=== PATIENT | female | born 1960 | race Caucasian/White ===

== ENCOUNTER 2018-07-28 16:28 | Observation (INO) | payer OTHER ==
[2018-07-28 17:41] LABS: Urine Blood NEGATIVE (NEG); Urine Glucose NEGATIVE (NEG); Urine Protein NEGATIVE (NEG); Urine Specific Gravity 1.015 (1.005-1.030); Urine pH 8.5 (5.0-7.0)
[2018-07-28] MEDS ORDERED: PANTOPRAZOLE 40 MG INJ ONE (17:43)
[2018-07-28] MEDS ORDERED: NA CHLORIDE 0.9% 1,000 ML ONE (17:43)
[2018-07-28] MEDS ORDERED: METRONIDAZOLE 500mg IVPB 500 MG/100 ML BAG IV ONE (17:43)
[2018-07-28] MEDS ORDERED: MORPHINE 4 MG/ML SYR ONE ×2 (17:43→18:40)
[2018-07-28] MEDS ORDERED: Levofloxacin 750mg IV 750 MG/150 ML BAG IV ONE (17:43)
[2018-07-28] MEDS ORDERED: ONDANSETRON 4 MG/2 ML VIAL ONE (17:43)
[2018-07-28 18:04] LABS: Absolute Lymphocytes (CBC) 1.5 K/uL (0.7-4.9); Absolute Monocytes 0.3 K/uL (0.1-1.3); Absolute Neutrophil 3.1 K/uL (1.8-8.0); Basophils % 0.7 % (0-1.3); Eosinophils % 2.7 % (0-4.4); Hematocrit 41.9 % (36.0-45.0); MPV 7.5 fL (7.6-11.3); Monocytes % 5.5 % (3.3-12.3); RBC Red Blood Cell Count 4.64 M/uL (3.86-4.86)
[2018-07-28 18:07] LABS: Protime INR 1.03
--- NOTE | 2018-07-28 18:22 | RAD REPORT ---
EXAM DESCRIPTION: Jessica Single View07/28/2018 6:16 pm CLINICAL HISTORY: Abdominal pain COMPARISON: none FINDINGS: The lungs appear clear of acute infiltrate. The heart is normal size IMPRESSION: No acute abnormalities displayed
[2018-07-28 18:26] LABS: ALT/SGPT 20 U/L (12-78); AST/SGOT 11 U/L (15-37); Alkaline Phosphatase 69 U/L (45-117); BUN Blood Urea Nitrogen 7 mg/dL (7-18); Bicarbonate 37 mmol/L (21-32); Bilirubin Direct 0.1 mg/dL (0-0.2); Bilirubin Total 0.6 mg/dL (0.2-1.0); Glucose Level 103 mg/dL (74-106); Lipase 54 U/L (73-393); NT PRO-BNP 49 pg/mL (<125); Protein, Total 7.7 g/dL (6.4-8.2); Sodium Level 140 mmol/L (136-145); Troponin (Emerg Dept Use Only) < 0.02 ng/mL (0.0-0.045)
[2018-07-28 18:32] LABS: Potassium 2.8 mmol/L (3.5-5.1)
--- NOTE | 2018-07-28 18:38 | ER ---
Nurse's Notes [facility] Name: Sravani Noriega Age: 58 yrs Sex: Female : 1960 Arrival Date: 07/28/2018 Time: 16:34 Bed 6 Private MD: out of town, doctor Diagnosis: Abdominal tenderness;Diarrhea, unspecified-colitis;Volume depletion;Hypokalemia Presentation: 07/28 16:42 Presenting complaint: Patient states: Lower abdominal pain with bloody stool for 6 aj days. Reports pain in bilateral flanks. Transition of care: patient was not received from another setting of care. Onset of symptoms was July 22, 2018. Risk Assessment: Do you want to hurt yourself or someone else? Patient reports no desire to harm self or others. Initial Sepsis Screen: Does the patient meet any 2 criteria? No. Patient's initial sepsis screen is negative. Does the patient have a suspected source of infection? No. Patient's initial sepsis screen is negative. Care prior to arrival: None. 16:42 Method Of Arrival: Ambulatory 16:42 Acuity: ADELSO 3 aj Triage Assessment: 16:44 General: Appears in no apparent distress. uncomfortable, Behavior is calm, cooperative, aj appropriate for age. Pain: Complains of pain in posterior aspect of right lateral abdomen, anterior aspect of right lateral abdomen, posterior aspect of left lateral abdomen, anterior aspect of left lateral abdomen, right lower quadrant and left lower quadrant. Neuro: Level of Consciousness is awake, alert, obeys commands, Oriented to person, place, time, situation, Appropriate for age. Respiratory: Airway is patent Respiratory effort is even, unlabored, Respiratory pattern is regular, symmetrical. GI: Reports lower abdominal pain, diarrhea, bloody stool, nausea. Derm: Skin is intact, is healthy with good turgor, Skin is pink, warm \T\ dry. normal. Historical: - Allergies: 16:44 No Known Allergies; aj - Home Meds: 16:44 losartan oral oral [Active]; Hydrochlorothiazide Oral [Active]; amitriptyline Oral aj [Active]; Wellbutrin Oral [Active]; Ambien Oral [Active]; Xanax Oral [Active]; Trazodone Oral [Active]; - PMHx: 16:44 Hypertension; Anxiety; Depression; aj - PSHx: 16:44 Right ankle; Hysterectomy; aj - Immunization history:: Adult Immunizations up to date. - Social history:: Smoking status: Patient/guardian denies using tobacco. - Ebola Screening: : Patient negative for fever greater than or equal to 101.5 degrees Fahrenheit, and additional compatible Ebola Virus Disease symptoms Patient denies exposure to infectious person Patient denies travel to an Ebola-affected area in the 21 days before illness onset No symptoms or risks identified at this time. - Family history:: not pertinent. Screenin:45 Abuse screen: Denies threats or abuse. Denies injuries from another. Nutritional sv screening: No deficits noted. Tuberculosis screening: No symptoms or risk factors identified. Fall Risk None identified. Assessment: 17:45 General: Appears in no apparent distress. uncomfortable, well developed, Behavior is sv calm, cooperative, appropriate for age. Pain: Complains of pain in abdomen and low back Pain currently is 10 out of 10 on a pain scale. Pain began about a week ago Is continuous. Neuro: Level of Consciousness is awake, alert, obeys commands, Oriented to person, place, time, situation, Moves all extremities. Full function Gait is steady. Respiratory: Respiratory effort is even, unlabored, Respiratory pattern is regular, symmetrical. GI: Reports lower abdominal pain, upper abdominal pain, diarrhea, bloody stool, intolerance of food, nausea, tolerance of fluids, vomiting. Derm: Skin is pink, warm \T\ dry. 18:30 Reassessment: Patient appears in no apparent distress at this time. Patient and/or sv family updated on plan of care and expected duration. Pain level reassessed. Patient is alert, oriented x 3, equal unlabored respirations, skin warm/dry/pink. 18:30 Pain: Complains of pain in abdomen and low back Pain currently is 6 out of 10 on a pain sv scale. 19:38 Reassessment: Patient is alert, oriented x 3, equal unlabored respirations, skin lp1 warm/dry/pink. Patient pending CT; Aware of admission. Pain: Complains of pain in right lower quadrant. Vital Signs: 16:44 BP 130 / 90; Pulse 99; Resp 20; Temp 97.6; Pulse Ox 98% on R/A; Weight 71.21 kg; Height aj 5 ft. 4 in. (162.56 cm); 17:30 BP 121 / 84; Pulse 79; Resp 16; Pulse Ox 99% ; sv 18:15 BP 113 / 73; Pulse 72; Resp 18; Pulse Ox 97% ; sv 20:30 BP 123 / 55; Pulse 77; Resp 16; Pulse Ox 100% on R/A; Pain 8/10; lp1 16:44 Body Mass Index 26.95 (71.21 kg, 162.56 cm) ED Course: 16:34 Patient arrived in ED. sb2 16:35 out of town, doctor is Private Physician. sb2 16:42 Triage completed. aj 16:44 Arm band placed on left wrist. Patient placed in an exam room. aj 17:06 Shaun Siddiqui MD is Attending Physician. riley 17:27 Gisel Bee RN is Primary Nurse. sv 17:45 Patient has correct armband on for positive identification. Placed in gown. Bed in low sv position. Call light in reach. Pulse ox on. NIBP on. Door closed. Warm blanket given. Head of bed elevated. 17:45 Initial lab(s) drawn, by nj, sent to lab. Inserted saline lock: 20 gauge in right sv antecubital area, using aseptic technique. Blood collected. Flushed right antecubital with 5 ml normal saline. 17:58 EKG done, by air sealing technician. reviewed by Shaun Siddiqui MD. 3 18:17 XRAY Chest (1 view) In Process Unspecified. EDMS 18:30 Warm blanket given. sv 18:34 Marlo Powers MD is Hospitalizing Provider. [facility] 19:15 Report given to Karrie GOLD and Sheri GOLD. sv 19:29 Primary Nurse role handed off by Gisel Bee RN sv 19:38 Sheri Gregorio, ASIF is Primary Nurse. lp1 19:39 No provider procedures requiring assistance completed. Patient admitted, IV remains in lp1 place. 20:[address] via wheelchair. lp1 20:23 CT completed. Patient tolerated procedure well. Patient moved back from CT. nj Administered Medications: 17:45 Drug: Zofran 4 mg Route: IVP; Site: right antecubital; sv 18:09 Follow up: Response: No adverse reaction sv 17:45 Drug: NS 0.9% 1000 ml Route: IV; Rate: 1 bolus; Site: right antecubital; sv 18:35 Follow up: Response: No adverse reaction; IV Status: Completed infusion; IV Intake: sv 1000ml 17:47 Drug: morphine 4 mg Route: IVP; Site: right antecubital; sv 18:09 Follow up: Response: No adverse reaction sv 17:49 Drug: ProTONIX 40 mg Route: IVP; Site: right antecubital; sv 18:09 Follow up: Response: No adverse reaction sv 17:51 Drug: Flagyl 500 mg Volume: 100 ml; Route: IVPB; Rate: 200 ml/hr; Infused Over: 30 sv mins; Site: right antecubital; 18:55 Follow up: Response: No adverse reaction; IV Status: Completed infusion; IV Intake: sv 100ml 18:32 Drug: morphine 4 mg Route: IVP; Site: right antecubital; sv 18:59 Follow up: Response: No adverse reaction sv 18:56 Drug: levofloxacin 750 mg Volume: 150 ml; Route: IVPB; Infused Over: 90 mins; Site: sv right antecubital; 20:58 Follow up: IV Status: Completed infusion tl2 21:06 Not Given (Mixed by pharmacy , to be given on admission): Potassium Chloride 20 mEq IV lp1 at per protocol once; administer over 1-2 hours 21:07 Not Given (Mixed by pharmacy, to be given on admission): Potassium Chloride 20 mEq IV lp1 at per protocol once; administer over 1-2 hours Intake: 18:07 PO: 500ml (Contrast); Total: 500ml. sv 18:35 IV: 1000ml; Total: 1500ml. sv 18:55 IV: 100ml; Total: 1600ml. sv 18:07 Called and informed Juany in [place], pt finished contrast. sv Outcome: 18:37 Decision to Hospitalize by Provider. riley 20:13 Condition: stable lp1 20:13 Instructed on the need for admit. 21:05 Admitted to Tele accompanied by tech, via wheelchair, room 410, with chart, Report lp1 called to ASIF [place] 21:11 Patient left the ED. lp1 Signatures: Dispatcher [employer] EDMS Gisel Bee RN RN sv Myers, Amanda, RN RN aj Anderson, Corey, MD MD cha Pena, Laura, RN RN lp1 Karrie Yan RN RN tl2 Carlos Espinoza Sheri sb2 Kinjal Kinsey sm3 Corrections: (The following items were deleted from the chart) 19:18 18:30 Reassessment: Patient appears in no apparent distress at this time. Patient sv and/or family updated on plan of care and expected duration. Pain level reassessed. Patient is alert, oriented x 3, equal unlabored respirations, skin warm/dry/pink. sv
--- NOTE | 2018-07-28 18:38 | EDPHYS ---
Physician Documentation [facility] Name: Sravani Noriega Age: 58 yrs Sex: Female : 1960 Arrival Date: 07/28/2018 Time: 16:34 Bed 6 Private MD: out of town, doctor ED Physician Shaun Siddiqui HPI: 07/28 17:29 This 58 yrs old Female presents to ER via Ambulatory with complaints of riley Bloody Stools, Back Pain, Flank Pain. 17:29 The patient presents with pain that is acute. The symptoms are located in the low back. riley Onset: The symptoms/episode began/occurred 5 day(s) ago. 17:30 The patient presents with abdominal pain in the upper abdomen, in the lower abdomen, riley abdominal distention. Onset: The symptoms/episode began/occurred 5 day(s) ago. The patient presents to the emergency department with diarrhea, abdominal pain, of the right upper quadrant, left upper quadrant, right lower quadrant and left lower quadrant. Onset: The symptoms/episode began/occurred 5 day(s) ago. Possible causes: unknown. The symptoms are aggravated by nothing. The symptoms are alleviated by nothing. The patient presents to the emergency department with rectal bleeding. Historical: - Allergies: 16:44 No Known Allergies; aj - Home Meds: 16:44 losartan oral oral [Active]; Hydrochlorothiazide Oral [Active]; amitriptyline Oral aj [Active]; Wellbutrin Oral [Active]; Ambien Oral [Active]; Xanax Oral [Active]; Trazodone Oral [Active]; - PMHx: 16:44 Hypertension; Anxiety; Depression; aj - PSHx: 16:44 Right ankle; Hysterectomy; aj - Immunization history:: Adult Immunizations up to date. - Social history:: Smoking status: Patient/guardian denies using tobacco. - Ebola Screening: : Patient negative for fever greater than or equal to 101.5 degrees Fahrenheit, and additional compatible Ebola Virus Disease symptoms Patient denies exposure to infectious person Patient denies travel to an Ebola-affected area in the 21 days before illness onset No symptoms or risks identified at this time. - Family history:: not pertinent. ROS: 17:30 Constitutional: Negative for fever, chills, and weight loss, Eyes: Negative for injury, riley pain, redness, and discharge, ENT: Negative for injury, pain, and discharge, Neck: Negative for injury, pain, and swelling, Cardiovascular: Negative for chest pain, palpitations, and edema, Respiratory: Negative for shortness of breath, cough, wheezing, and pleuritic chest pain, Back: Negative for injury and pain, : Negative for injury, bleeding, discharge, and swelling, MS/Extremity: Negative for injury and deformity, Skin: Negative for injury, rash, and discoloration, Neuro: Negative for headache, weakness, numbness, tingling, and seizure, Psych: Negative for depression, anxiety, suicide ideation, homicidal ideation, and hallucinations, Allergy/Immunology: Negative for hives, rash, and allergies, Endocrine: Negative for neck swelling, polydipsia, polyuria, polyphagia, and marked weight changes, Hematologic/Lymphatic: Negative for swollen nodes, abnormal bleeding, and unusual bruising. 17:30 Abdomen/GI: Positive for abdominal pain, rectal bleeding, of the right upper quadrant, left upper quadrant, right lower quadrant and left lower quadrant. Exam: 17:30 Constitutional: This is a well developed, well nourished patient who is awake, alert, riley and in no acute distress. Head/Face: Normocephalic, atraumatic. Eyes: Pupils equal round and reactive to light, extra-ocular motions intact. Lids and lashes normal. Conjunctiva and sclera are non-icteric and not injected. Cornea within normal limits. Periorbital areas with no swelling, redness, or edema. ENT: Nares patent. No nasal discharge, no septal abnormalities noted. Tympanic membranes are normal and external auditory canals are clear. Oropharynx with no redness, swelling, or masses, exudates, or evidence of obstruction, uvula midline. Mucous membranes moist. Neck: Trachea midline, no thyromegaly or masses palpated, and no cervical lymphadenopathy. Supple, full range of motion without nuchal rigidity, or vertebral point tenderness. No Meningismus. Chest/axilla: Normal chest wall appearance and motion. Nontender with no deformity. No lesions are appreciated. Cardiovascular: Regular rate and rhythm with a normal S1 and S2. No gallops, murmurs, or rubs. Normal PMI, no JVD. No pulse deficits. Respiratory: Lungs have equal breath sounds bilaterally, clear to auscultation and percussion. No rales, rhonchi or wheezes noted. No increased work of breathing, no retractions or nasal flaring. Back: No spinal tenderness. No costovertebral tenderness. Full range of motion. Female : Normal external genitalia. Skin: Warm, dry with normal turgor. Normal color with no rashes, no lesions, and no evidence of cellulitis. MS/ Extremity: Pulses equal, no cyanosis. Neurovascular intact. Full, normal range of motion. Neuro: Awake and alert, GCS 15, oriented to person, place, time, and situation. Cranial nerves II-XII grossly intact. Motor strength 5/5 in all extremities. Sensory grossly intact. Cerebellar exam normal. Normal gait. Psych: Awake, alert, with orientation to person, place and time. Behavior, mood, and affect are within normal limits. 17:30 Abdomen/GI: Inspection: abdomen appears normal, Bowel sounds: normal, Palpation: mild abdominal tenderness, in all quadrants, Rectal exam: rectal tone normal, Stool: normal, guaiac negative, hemorrhoid(s), are not appreciated, mass, is not appreciated, swelling, is not appreciated, tenderness, is not appreciated. Vital Signs: 16:44 BP 130 / 90; Pulse 99; Resp 20; Temp 97.6; Pulse Ox 98% on R/A; Weight 71.21 kg; Height aj 5 ft. 4 in. (162.56 cm); 17:30 BP 121 / 84; Pulse 79; Resp 16; Pulse Ox 99% ; sv 18:15 BP 113 / 73; Pulse 72; Resp 18; Pulse Ox 97% ; sv 20:30 BP 123 / 55; Pulse 77; Resp 16; Pulse Ox 100% on R/A; Pain 8/10; lp1 16:44 Body Mass Index 26.95 (71.21 kg, 162.56 cm) MDM: 17:[address] [facility] 17:32 Data reviewed: vital signs, nurses notes, lab test result(s), EKG, radiologic studies, [facility] CT scan, plain films. 07/28 17:29 Order name: Basic Metabolic Panel; Complete Time: 18:33 [facility] 07/28 17:29 Order name: CBC with Diff; Complete Time: 18:31 [facility] 07/28 17:29 Order name: LFT's; Complete Time: 18:33 [facility] 07/28 17:29 Order name: Magnesium; Complete Time: 18:33 [facility] 07/28 17:29 Order name: NT PRO-BNP; Complete Time: 18:33 [facility] 07/28 17:29 Order name: PT-INR; Complete Time: 18:31 [facility] 07/28 17:29 Order name: Troponin (emerg Dept Use Only); Complete Time: 18:33 [facility] 07/28 17:29 Order name: XRAY Chest (1 view); Complete Time: 18:31 [facility] 07/28 17:29 Order name: Lipase; Complete Time: 18:33 [facility] 07/28 17:29 Order name: CT Abd/Pelvis - W/Contrast: iv and oral [facility] 07/28 17:38 Order name: Urine Dipstick--Ancillary (enter results); Complete Time: 18:31 07/28 19:59 Order name: Lactate [facility] 07/28 20:51 Order name: CT [facility] 07/28 17:29 Order name: EKG; Complete Time: 17:30 [facility] 07/28 17:29 Order name: EKG - Nurse/Tech; Complete Time: 18:08 [facility] 07/28 17:29 Order name: IV Saline Lock; Complete Time: 17:59 [facility] 07/28 17:29 Order name: Labs collected and sent; Complete Time: 17:59 [facility] 07/28 17:29 Order name: O2 Per Protocol; Complete Time: 18:00 [facility] 07/28 17:29 Order name: O2 Sat Monitoring; Complete Time: 19:01 [facility] Administered Medications: 17:45 Drug: Zofran 4 mg Route: IVP; Site: right antecubital; sv 18:09 Follow up: Response: No adverse reaction sv 17:45 Drug: NS 0.9% 1000 ml Route: IV; Rate: 1 bolus; Site: right antecubital; sv 18:35 Follow up: Response: No adverse reaction; IV Status: Completed infusion; IV Intake: sv 1000ml 17:47 Drug: morphine 4 mg Route: IVP; Site: right antecubital; sv 18:09 Follow up: Response: No adverse reaction sv 17:49 Drug: ProTONIX 40 mg Route: IVP; Site: right antecubital; sv 18:09 Follow up: Response: No adverse reaction sv 17:51 Drug: Flagyl 500 mg Volume: 100 ml; Route: IVPB; Rate: 200 ml/hr; Infused Over: 30 sv mins; Site: right antecubital; 18:55 Follow up: Response: No adverse reaction; IV Status: Completed infusion; IV Intake: sv 100ml 18:32 Drug: morphine 4 mg Route: IVP; Site: right antecubital; sv 18:59 Follow up: Response: No adverse reaction sv 18:56 Drug: levofloxacin 750 mg Volume: 150 ml; Route: IVPB; Infused Over: 90 mins; Site: sv right antecubital; 20:58 Follow up: IV Status: Completed infusion tl2 21:06 Not Given (Mixed by pharmacy , to be given on admission): Potassium Chloride 20 mEq IV lp1 at per protocol once; administer over 1-2 hours 21:07 Not Given (Mixed by pharmacy, to be given on admission): Potassium Chloride 20 mEq IV lp1 at per protocol once; administer over 1-2 hours Disposition: 07/28/18 18:37 Hospitalization ordered by Marlo Powers for Inpatient Admission. Preliminary diagnosis are Abdominal tenderness, Diarrhea, unspecified - colitis, Volume depletion, Hypokalemia. - Bed requested for Telemetry/MedSurg (Inpatient). - Status is Inpatient Admission. lp1 - Condition is Fair. - Problem is new. - Symptoms have improved. UTI on Admission? No Signatures: Dispatcher [employer] Gisel Banuelos RN RN sv Webb, Martha RN Susie Samuel RN RN aj Anderson, Corey, MD MD cha Pena, Laura, RN RN lp1 Karrie Yan RN tl2 Corrections: (The following items were deleted from the chart) 18:59 17:29 Cardiac monitoring ordered. [facility] 20:02 18:37 Hospitalization Ordered by Marlo Powers MD for Inpatient Admission. Preliminary diagnosis is Abdominal tenderness; Diarrhea, unspecified - colitis; Volume depletion; Hypokalemia. Bed requested for Telemetry/MedSurg (Inpatient). Status is Inpatient Admission. Condition is Fair. Problem is new. Symptoms have improved. UTI on Admission? No. [facility] 21:11 20:02 07/28/2018 18:37 Hospitalization Ordered by Marlo Powers MD for Inpatient lp1 Admission. Preliminary diagnosis is Abdominal tenderness; Diarrhea, unspecified - colitis; Volume depletion; Hypokalemia. Bed requested for Telemetry/MedSurg (Inpatient). Status is Inpatient Admission. Condition is Fair. Problem is new. Symptoms have improved. UTI on Admission? No. mw
[2018-07-28] MEDS ORDERED: NA CHLORIDE 0.9% 500 ML with POTASSIUM CL 40 MEQ IV ONE ×2 (19:00)
--- NOTE | 2018-07-28 19:58 | P.HP ---
Certification for Inpatient Patient admitted to: Observation With expected LOS: <2 Midnights Practitioner: I am a practitioner with admitting privileges, knowledge of patient current condition, hospital course, and medical plan of care. Services: Services provided to patient in accordance with Admission requirements found in Title 42 Section 412.3 of the Code of Federal Regulations Patient History Date of Service: 07/28/18 Reason for admission: gastroenteritis History of Present Illness: Ms Noriega is a 58 years old woman with history of HTN, anxiety and depression, who start about 7 days ago with severe abdominal pain associated with nausea, vomiting and diarrhea. Her diarrhea transitorily improved along this week, but since yesterday she has more profuse again. The diarrhea has mucous and occasionally sow some blood and clots. She is not tollerating solid food but is ok with liquids. She denied fever or chills. Abdominal pain, is diffuse, colicky like, 8/10 of maximum intensity. Lab work shows normal WBC count, lactate is pending. She has electrolyte disturbance. CT abd/pelvis pending. Home medications list reviewed: Yes - Past Medical/Surgical History -: HTN -: anxiety -: depression -: right ankle -: hysterectomy - Family History Family History: Reviewed- Non-Contributory - Social History Smoking Status: Former smoker Alcohol use: No CD- Drugs: No Place of Residence: Home Review of Systems 10-point ROS is otherwise unremarkable Physical Examination - Physical Exam General: Alert, In no apparent distress HEENT: Atraumatic, PERRLA, Mucous membr. moist/pink, EOMI, Sclerae nonicteric Neck: Supple, 2+ carotid pulse no bruit, No LAD, Without JVD or thyroid abnormality Respiratory: Clear to auscultation bilaterally, Normal air movement Cardiovascular: Regular rate/rhythm, Normal S1 S2 Gastrointestinal: Normal bowel sounds, Tenderness (diffuse tenderness to palpation) Musculoskeletal: No tenderness Integumentary: No rashes Neurological: Normal speech, Normal strength at 5/5 x4 extr, Normal tone, Normal affect Lymphatics: No axilla or inguinal lymphadenopathy - Studies Laboratory Data (last 24 hrs) 07/28/18 17:45: PT 12.1, INR 1.03 07/28/18 17:45: WBC 5.0, Hgb 14.5, Hct 41.9, Plt Count 340 07/28/18 17:45: Sodium 140, Potassium 2.8 L*, BUN 7, Creatinine 0.94, Glucose 103, Magnesium 3.0 H, Total Bilirubin 0.6, AST 11 L, ALT 20, Alkaline Phosphatase 69, Lipase 54 L Assessment and Plan - Problems (Diagnosis) (1) Acute gastroenteritis Current Visit: Yes Status: Acute (2) HTN (hypertension) Current Visit: Yes Status: Acute Qualifiers: Hypertension type: essential hypertension Qualified Code(s): I10 - Essential (primary) hypertension (3) Hypokalemia Current Visit: Yes Status: Acute (4) Volume depletion Current Visit: Yes Status: Acute - Plan The patient clinical presentation is consistent with gastroenteritis, may be colitis, awaiting CT abd/pelvis result. Will order stool cultures, C.Diff, WBC stools, differential diagnosis is broad. Will order IV fluids, and clear liquids diet. Will replace electrolytes by protocol as needed. - Advance Directives Does patient have a Living Will: No Does patient have a Durable POA for Healthcare: No - Code Status/Comfort Care Code Status Assessed: Yes Code Status: Full Code
[2018-07-28] MEDS ORDERED: ONDANSETRON 4 MG/2 ML VIAL IV PRN (20:36)
[2018-07-28] MEDS ORDERED: ACETAMINOPHEN 500 MG TAB PO PRN (20:36)
[2018-07-28] MEDS ORDERED: KETOROLAC 30 MG/ML INJ IV ONE (20:42)
--- NOTE | 2018-07-28 20:50 | RAD REPORT ---
EXAM DESCRIPTION: CT - Abdomen Pelvis W Contrast - 07/28/2018 8:22 pm CLINICAL HISTORY: Abdominal pain. Hematochezia COMPARISON: None. TECHNIQUE: Computed axial tomography of the abdomen and pelvis was obtained. 100 cc Isovue-300 is ad ministered intravenously. Oral contrast was given. All CT scans are performed using dose optimization technique as appropriate and may include automated exposure control or mA/KV adjustment according to patient size. FINDINGS: The liver, spleen, pancreas, adrenals and kidneys appear unremarkable. The appendix is normal caliber. There is no evidence of diverticulitis The wall of the sigmoid colon appears mildly thickened IMPRESSION: Mild thickening of the wall of the sigmoid colon probably indicates a mild colitis
[2018-07-28] MEDS ORDERED: KETOROLAC 30 MG/ML INJ ONE (20:57)
[2018-07-28] MEDS ORDERED: Oxycodone HCl/Acetaminophen 1 TAB TAB PO ONE (21:50)
[2018-07-28] MEDS ORDERED: DIPHENHYDRAMINE 50 MG/ML VIAL IV ONE (21:50)
[2018-07-28] MEDS: NA CHLORIDE 0.9% 1,000 ML IV SCH (22:06)
[2018-07-29] MEDS ORDERED: Oxycodone HCl/Acetaminophen 1 TAB TAB PO PRN (03:31)
[2018-07-29] MEDS: NA CHLORIDE 0.9% 1,000 ML IV SCH (04:36)
[2018-07-29 05:22] LABS: Absolute Lymphocytes (CBC) 1.9 K/uL (0.7-4.9); Absolute Monocytes 0.4 K/uL (0.1-1.3); Absolute Neutrophil 1.9 K/uL (1.8-8.0); Basophils % 0.4 % (0-1.3); Eosinophils % 4.1 % (0-4.4); Hematocrit 37.3 % (36.0-45.0); Lymphocytes % 43.7 % (15.3-44.8); MPV 7.4 fL (7.6-11.3); Monocytes % 8.5 % (3.3-12.3); RBC Red Blood Cell Count 4.11 M/uL (3.86-4.86)
[2018-07-29 05:30] LABS: Potassium 4.1 mmol/L (3.5-5.1)
--- NOTE | 2018-07-29 08:30 | EKG ---
Test Date: 2018-07-28 Test Time: 17:51:57 Elementary Secretary: SUNITHA MEASUREMENT RESULTS: Intervals: Rate: 69 LA: 178 QRSD: 90 QT: 432 QTc: 462 [place]: P: 57 LA: 178 QRS: 51 T: 56 INTERPRETIVE STATEMENTS: Normal sinus rhythm Low voltage QRS Borderline ECG No previous ECG available for comparison Electronically Signed On 07-29-18 08:29:54 [employer] by Jhon Romero
[2018-07-29] MEDS ORDERED: SODIUM CHLORIDE 0.9% 10ML INJ IV PRN (08:40)
[2018-07-29] MEDS ORDERED: HYDRALAZINE HCL 20 MG/ML VIAL IV PRN (08:41)
[2018-07-29] MEDS ORDERED: INFLUENZA VACCINE (for 3y+) 0.5 ML DOSE IMVAC ONE (09:00)
[2018-07-29] MEDS: NACHLORIDE 0.45% 1,000 ML IV SCH ×3 (09:00→22:12)
--- NOTE | 2018-07-29 09:35 | P.PN ---
Subjective Date of Service: 07/29/18 Primary Care Provider: Dr. Cat([place], [place]) Chief Complaint: gastroenteritis Subjective: Other (Pain to the abdomen improved. No significant nausea or vomiting. Diarrhea improved.) Physical Examination - Vital Signs Temperature: 97.4 F Blood Pressure: 140/75 Pulse: 71 Respirations: 16 Pulse Ox (%): 100 - Physical Exam General: Alert, In no apparent distress, Oriented x3, Cooperative HEENT: Atraumatic Neck: Supple Respiratory: Clear to auscultation bilaterally, Normal air movement Cardiovascular: Normal pulses, Regular rate/rhythm Gastrointestinal: Normal bowel sounds, Soft and benign, Non-distended, No masses , No rebound, No guarding, Tenderness (Less pain to the abdomen noted.) Musculoskeletal: No erythema, No tenderness, No warmth Integumentary: No tenderness/swelling, No erythema, No warmth, No cyanosis Neurological: Normal speech, Normal strength at 5/5 x4 extr, Normal tone, Normal affect - Studies Laboratory Data (last 24 hrs) 07/28/18 17:45: PT 12.1, INR 1.03 07/28/18 17:45: WBC 5.0, Hgb 14.5, Hct 41.9, Plt Count 340 07/28/18 17:45: Sodium 140, Potassium 2.8 L*, BUN 7, Creatinine 0.94, Glucose 103, Magnesium 3.0 H, Total Bilirubin 0.6, AST 11 L, ALT 20, Alkaline Phosphatase 69, Lipase 54 L Medications List Reviewed: Yes Assessment & Plan Discharge Plan: Home Plan to discharge in: 48 Hours Physician Review Additional Text: Impression: Abdominal pain, nausea, vomiting and diarrhea secondary to colitis Dehydration with noted hypokalemia Anxiety GERD Hypertension Plan: Abdominal pain, nausea, vomiting and diarrhea secondary to colitis: Will continue with IV fluids, and antibiotic therapy-Cipro and Flagyl. Stool cultures obtained. Will need to evaluate for C diff colitis. Will start with a clear liquid diet. Will advance as tolerated. Encourage ambulation. Dehydration with noted hypokalemia: Continue with IV fluids. Will continue with replacement therapy. Will monitor and adjust. Anxiety: Will continue with her home medication. Will monitor closely. GERD: Will provide PPI. Hypertension: Blood pressure stable this time. Will hold her blood pressure medication. Will provide medication IV as needed. If blood pressure increases then will need to restart home medication. Time Spent Managing Pts Care (In Minutes): 55
[2018-07-29] MEDS: METRONIDAZOLE 500mg IVPB 500 MG/100 ML BAG IV SCH ×2 (10:34→16:38)
[2018-07-29] MEDS: PANTOPRAZOLE 40 MG INJ IVP SCH (10:35)
[2018-07-29] MEDS: TRAMADOL HCL 50 MG TAB PO PRN (12:07)
[2018-07-29 13:34] LABS: Urine Appearance CLEAR; Urine Bilirubin NEGATIVE (NEG); Urine Blood NEGATIVE (NEG); Urine Color YELLOW; Urine Glucose NEGATIVE (NEG); Urine Protein NEGATIVE (NEG); Urine Specific Gravity >=1.030 (1.005-1.030); Urine Urobilinogen 0.2 mg/dL (0.2-1.0)
[2018-07-29 14:05] LABS: Urine Bacteria NONE SEEN /HPF (<20); Urine Culture Reflex Order NOT NEEDED; Urine RBC NONE SEEN /HPF (NONE SEEN)
[2018-07-29] MEDS: MEPERIDINE HCL 25 MG/0.5 ML IV PRN ×2 (14:41→20:46)
[2018-07-29] MEDS: CIPROFLOXACIN 400mg IV 400 MG/200 ML BAG IV SCH (16:39)
[2018-07-29] MEDS ORDERED: ENOXAPARIN 40 MG/0.4 ML SQ SCH (17:00)
[2018-07-29] MEDS: LACTOBACILLUS/ACIDOPHILUS TAB PO SCH (20:46)
[2018-07-29] MEDS ORDERED: TRAZODONE 50 MG TABLET PO SCH (21:00)
[2018-07-29] MEDS ORDERED: ALPRAZOLAM 1 MG TABLET PO SCH (21:00)
[2018-07-30] MEDS: METRONIDAZOLE 500mg IVPB 500 MG/100 ML BAG IV SCH ×2 (00:39→09:55)
[2018-07-30] MEDS: MEPERIDINE HCL 25 MG/0.5 ML IV PRN ×2 (04:24→10:04)
[2018-07-30] MEDS: CIPROFLOXACIN 400mg IV 400 MG/200 ML BAG IV SCH (05:18)
[2018-07-30 05:45] LABS: Absolute Lymphocytes (CBC) 1.7 K/uL (0.7-4.9); Absolute Monocytes 0.3 K/uL (0.1-1.3); Absolute Neutrophil 1.6 K/uL (1.8-8.0); Basophils % 0.8 % (0-1.3); Eosinophils % 4.7 % (0-4.4); Hematocrit 33.7 % (36.0-45.0); MPV 7.6 fL (7.6-11.3); Monocytes % 7.2 % (3.3-12.3); RBC Red Blood Cell Count 3.75 M/uL (3.86-4.86)
[2018-07-30 05:55] LABS: Magnesium 2.3 mg/dL (1.8-2.4); Potassium 3.7 mmol/L (3.5-5.1)
[2018-07-30] MEDS ORDERED: POTASSIUM 25 MEQ EFFERV TAB PO ONE (06:12)
[2018-07-30] MEDS ORDERED: LOSARTAN POTASSIUM 50 MG TABLET PO SCH (09:00)
[2018-07-30] MEDS ORDERED: AMLODIPINE 5 MG TAB PO SCH (09:00)
[2018-07-30] MEDS: NACHLORIDE 0.45% 1,000 ML IV SCH (09:00)
[2018-07-30] MEDS: LACTOBACILLUS/ACIDOPHILUS TAB PO SCH (09:55)
[2018-07-30] MEDS: PANTOPRAZOLE 40 MG INJ IVP SCH (09:56)
--- NOTE | 2018-07-30 10:16 | P.DS ---
Admission Date: 07/28/18 Discharge Date: 07/30/18 Primary Care Provider: Dr. Cat([place], [place]) Disposition: ROUTINE DISCHARGE Discharge Condition: GOOD Reason for Admission: gastroenteritis Consultations: none Procedures: CT scan: COMPARISON: None. TECHNIQUE: Computed axial tomography of the abdomen and pelvis was obtained. 100 cc Isovue-300 is administered intravenously. Oral contrast was given. All CT scans are performed using dose optimization technique as appropriate and may include automated exposure control or mA/KV adjustment according to patient size. FINDINGS: The liver, spleen, pancreas, adrenals and kidneys appear unremarkable. The appendix is normal caliber. There is no evidence of diverticulitis The wall of the sigmoid colon appears mildly thickened IMPRESSION: Mild thickening of the wall of the sigmoid colon probably indicates a mild colitis CXR: COMPARISON: none FINDINGS: The lungs appear clear of acute infiltrate. The heart is normal size IMPRESSION: No acute abnormalities displayed Medical Problem List: Abdominal pain, nausea, vomiting and diarrhea secondary to mild sigmoid colitis Dehydration with noted hypokalemia, resolved Anxiety GERD Hypertension Brief History of Present Illness: 58-year-old female presented to the emergency room with nausea, vomiting, abdominal pain and diarrhea. CT scan revealed sigmoid colitis. Patient was admitted for further treatment and evaluation. Hospital Course: Patient presented with abdominal pain, nausea, vomiting and diarrhea secondary to mild sigmoid colitis. Patient was given IV fluids and antibiotic therapy. Patient responded well to medication. Stool cultures negative. At discharge she will continue with a GI soft diet and diarrhea improved. At discharge she will continue with Cipro 500 mg twice daily and Flagyl 500 mg 3 times a day for 10 days. Patient will also continue with pro biotics 3 times a day and Imodium over the counter as needed for diarrhea. Recommendations for the patient follow up with her PCP in 1 week to follow up this hospitalization. Recommendation is for the patient to establish care with GI to further address. Patient will require colonoscopy evaluation in 4-6 weeks to further address. PCP will need to follow up C diff culture results. Patient reports family history of ulcer colitis. This can be further addressed by GI. Patient with mild dehydration and hypokalemia. Patient given IV fluids. This resolved. Recommend to recheck lab-BMP in 1 week. Patient has hypertension. Medication adjusted during her stay. Hydrochlorothiazide discontinued due to hypokalemia. Patient will continue with her medications of Norvasc 5 mg daily and losartan 50 mg daily. Hydrochlorothiazide has been discontinued. Recommendation is to maintain blood pressures less 150/80. Further adjustment can be done by her PCP. Patient has anxiety. Patient will continue with her medication of Xanax 1.5 mg at night and trazodone 50 mg at night. Further adjustment can be done by her PCP. Patient with GERD. Patient may continue with Pepcid 20 mg twice daily. Recommendation is for the patient follow up with GI as an outpatient to further evaluate. Vital Signs/Physical Exam: Temp Pulse Resp BP Pulse Ox 98 F 63 16 124/66 95 07/30/18 08:00 07/30/18 09:55 07/30/18 08:00 07/30/18 09:55 07/30/18 08:00 General: Alert, In no apparent distress, Oriented x3, Cooperative HEENT: Atraumatic, Mucous membr. moist/pink Neck: Supple, No Thyromegaly Respiratory: Clear to auscultation bilaterally, Normal air movement Cardiovascular: Normal pulses, Regular rate/rhythm Gastrointestinal: Normal bowel sounds, Soft and benign, Non-distended, No tenderness, No masses, No rebound, No guarding Musculoskeletal: No erythema, No tenderness, No warmth Integumentary: No tenderness/swelling, No erythema, No warmth, No cyanosis Neurological: Normal speech, Normal strength at 5/5 x4 extr, Normal tone, Normal affect Laboratory Data at Discharge: WBC 3.8 K/uL (4.3-10.9) L 07/30/18 05:26 Hgb 11.7 g/dL (12.0-15.0) L 07/30/18 05:26 Hct 33.7 % (36.0-45.0) L 07/30/18 05:26 Plt Count 297 K/uL (152-406) 07/30/18 05:26 PT 12.1 SECONDS (9.5-12.5) 07/28/18 17:45 INR 1.03 07/28/18 17:45 Sodium 145 mmol/L (136-145) 07/30/18 05:26 Potassium 3.7 mmol/L (3.5-5.1) 07/30/18 05:26 BUN 4 mg/dL (7-18) L 07/30/18 05:26 Creatinine 0.79 mg/dL (0.55-1.3) 07/30/18 05:26 Glucose 94 mg/dL (74-106) 07/30/18 05:26 Magnesium 2.3 mg/dL (1.8-2.4) D 07/30/18 05:26 Total Bilirubin 0.6 mg/dL (0.2-1.0) 07/28/18 17:45 AST 11 U/L (15-37) L 07/28/18 17:45 ALT 20 U/L (12-78) 07/28/18 17:45 Alkaline Phosphatase 69 U/L (45-117) 07/28/18 17:45 Lipase 54 U/L (73-393) L 07/28/18 17:45 Home Medications: ALPRAZolam [Alprazolam] 1.5 mg PO BEDTIME 07/29/18 Amlodipine Besylate 5 mg PO DAILY 07/29/18 Losartan Potassium 50 mg PO DAILY 07/29/18 Ondansetron [Ondansetron Odt] 1 - 2 tab PO Q8H PRN 07/29/18 Trazodone [Desyrel*] 50 mg PO BEDTIME 07/29/18 Ciprofloxacin HCl [Cipro 500 MG Tablet] 500 mg PO BID #20 tab 07/30/18 Famotidine [Pepcid] 20 mg PO BID #60 tab 07/30/18 Lactobacillus Acidophilus [Acidophilus Lactobacilli] 1 each PO TID #30 capsule 07/30/18 Loperamide [Imodium] 2 mg PO Q4HP PRN #10 cap 07/30/18 metroNIDAZOLE [Flagyl] 500 mg PO Q8H #30 tablet 07/30/18 New Medications: Ciprofloxacin HCl [Cipro 500 MG Tablet] 500 mg PO BID #20 tab Famotidine [Pepcid] 20 mg PO BID #60 tab Lactobacillus Acidophilus [Acidophilus Lactobacilli] 1 each PO TID #30 capsule Loperamide [Imodium] 2 mg PO Q4HP PRN #10 cap PRN Reason: Diarrhea metroNIDAZOLE [Flagyl] 500 mg PO Q8H #30 tablet Patient Discharge Instructions: 1. Patient will need to follow up with a PCP in 1 week to follow up this hospitalization. 2. Patient presented with abdominal pain, nausea, vomiting and diarrhea secondary to mild sigmoid colitis. Patient was given IV fluids and antibiotic therapy. Patient responded well to medication. Stool cultures negative. At discharge she will continue with a GI soft diet and diarrhea improved. At discharge she will continue with Cipro 500 mg twice daily and Flagyl 500 mg 3 times a day for 10 days. Patient will also continue with pro biotics 3 times a day and Imodium over the counter as needed for diarrhea. Recommendations for the patient follow up with her PCP in 1 week to follow up this hospitalization. Recommendation is for the patient to establish care with GI to further address. Patient will require colonoscopy evaluation in 4-6 weeks to further address. PCP will need to follow up C diff culture results. 3. Patient with mild dehydration and hypokalemia. Patient given IV fluids. This resolved. Recommend to recheck lab-BMP in 1 week. 4. Patient has hypertension. Medication adjusted during her stay. Hydrochlorothiazide discontinued due to hypokalemia. Patient will continue with her medications of Norvasc 5 mg daily and losartan 50 mg daily. Hydrochlorothiazide has been discontinued. Recommendation is to maintain blood pressures less 150/80. Further adjustment can be done by her PCP. 5. Patient has anxiety. Patient will continue with her medication of Xanax 1.5 mg at night and trazodone 50 mg at night. Further adjustment can be done by her PCP. 6. Patient with GERD. Patient may continue with Pepcid 20 mg twice daily. Recommendation is for the patient follow up with GI as an outpatient to further evaluate. Diet: GI soft advanced to heart healthy Activity: Ad prudence Time spent managing pt's care (in minutes): 55
[2018-07-30] MEDS: TRAMADOL HCL 50 MG TAB PO PRN (10:59)
[2018-07-30] MEDS ORDERED: INFLUENZA VACCINE (for 3y+) 0.5 ML DOSE IMVAC ONE (13:00)
== END 2018-07-30 15:00 | disposition home or self-care (01) ==
LOC: ER 16:28 → ERHOLD 19:48 → 4TH 21:03
PROVIDERS: ADMIT Internal Medicine; ATTEND Internal Medicine
DX: K52.9 Noninfective gastroenteritis and colitis, unspecified (principal); E86.0 Dehydration; E87.6 Hypokalemia; F41.9 Anxiety disorder, unspecified; K21.9 Gastro-esophageal reflux disease without esophagitis; I10 Essential (primary) hypertension; Z23 Encounter for immunization
CPT/HCPCS: 36415; 71045; 74177; 80048; 80076; 81001; 81003; 83605; 83690; 83735; 83880; 84484; 85025; 85610; 87045; 87046; 87493; 89055; 93005; 96365; 96366; 96367; 96375; 99285; C9113; G0008; G0378; J0744; J1650; J2175; J2405; J7030; Q2035; Q9967